=== PATIENT | male | born 1990 | race Two or more races ===

== ENCOUNTER 2019-07-31 10:57 | Emergency (ER) | payer MEDICAID ==
[~2019-07-31] VITALS: Ht 170.2 cm; Wt 85.7 kg
[2019-07-31 11:59] VITALS: BP 135/84
== END 2019-07-31 12:27 | disposition home or self-care (01) ==
LOC: ER 10:57
DX: L20.9 Atopic dermatitis, unspecified (principal)

== ENCOUNTER 2019-08-28 10:48 | Emergency (ER) | payer MEDICAID ==
[~2019-08-28] VITALS: Ht 167.6 cm; Wt 84.4 kg
[2019-08-28 10:54] VITALS: BP 121/82
== END 2019-08-28 12:32 | disposition home or self-care (01) ==
LOC: ER 10:48
DX: L30.9 Dermatitis, unspecified (principal); L30.4 Erythema intertrigo